=== PATIENT | female | born 1955 | race Caucasian/White ===

== ENCOUNTER → 2023-09-15 14:56 | Outpatient (CLI) | payer MEDICARE, SELFPAY ==
--- NOTE | ~2023-09-15 | XR_ITS ---
EXAM: XR knee RT 3V, XR knee LT 3V DATE: 09/15/2023 15:36 HISTORY: PAIN IN BOTH KNEES . COMPARISON: 08/01/2010. FINDINGS: Decreased mineralization. No fracture or dislocation. No lytic or blastic lesion. Severe b ilateral medial joint space narrowing, slightly worse on the left. Moderate tricompartmental osteophy tosis. Small bilateral knee joint effusions. No erosion or periosteal change. Soft tissues within nor mal limits. IMPRESSION: Bilateral tricompartmental knee osteoarthritis, severe in the medial compartments. Reviewed, dictated and finalized at location K. [employer] IMPRESSION: Bilateral tricompartmental knee osteoarthritis, severe in the media l compartments.
== END ==
PROVIDERS: PCP Internal Medicine; Visit Provider Internal Medicine
DX: M17.0 Bilateral primary osteoarthritis of knee (principal)
CPT/HCPCS: 73562